=== PATIENT | female | born 1985 | race Caucasian/White ===

== ENCOUNTER 2020-12-18 15:46 | Emergency (ER) | payer OTHER ==
--- NOTE | 2020-12-18 16:44 | XRAY ---
Indication: Strain/sprain injury. Comparison: None 2 view right clavicle obtained. No bony, articular, or soft tissue abnormalities.
--- NOTE | 2020-12-18 16:44 | XRAY ---
Indication: Strain/sprain injury. Comparison: None 3 view right shoulder obtained. No bony, articular, or soft tissue abnormalities.
--- NOTE | 2020-12-18 17:11 | ERPHSYRPT ---
- History of Present Illness Time Seen by Provider: 12/18/20 16:20 Source: patient Exam Limitations: no limitations Patient Subjective Stated Complaint: R shoulder, clavical pain Triage Nursing Assessment: pt to ED c/o R shoulder/clavical pain r/t injury this morning. states she attempted to catch and pull heavy tool box from falling out of truck and R shoulder got pulled in the process. rates 7/10 pain. has kept arm in resting position on abd since injury occured. limited ROM d/t pain, reports "grinding" sound with flexion or abduction of shoulder. Physician History: Patient is a 35-year-old female presents to our ED with complaints of right anterior shoulder and clavicle pain. Patient states that she lifted a heavy toolbox suddenly to prevent it from falling onto her . Injury occurred just prior to arrival. Patient immediately felt pain at her right shoulder. Pain described as an ache that is localized. No radiation. Pain worse with movement and palpation. Pain improved with rest. No other injuries reported. Patient otherwise healthy. Occurred: just prior to arrival Method of Injury: other (Lifting a heavy toolbox.) Quality: constant Severity of Pain-Max: moderate Severity of Pain-Current: mild (Pain rated 7 out of 10.) Extremities Pain Location: shoulder: right Modifying Factors: Improves With: movement Associated Symptoms: none, No chills, No chest discomfort, No chest pain, No dyspnea, No jaw pain, No sweating, No vomiting Allergies/Adverse Reactions: hydromorphone HCl [From Dilaudid] Allergy (Verified 12/18/20 16:15) Swelling Home Medications: Metformin HCl 1000 mg [Glucophage 1000 MG] 1,000 mg PO BID 02/18/15 [History] Metoprolol Succinate 25 mg Xl* [Toprol-Xl 25MG Tablets] 25 mg PO DAILY 10/29/15 [History] Fenofibrate Nanocrystallized [Fenofibrate] 145 mg PO DAILY 12/24/16 [History] Gabapentin 400 mg PO TID 12/24/16 [History] Hx Tetanus, Diphtheria Vaccination/Date Given: Yes Hx Influenza Vaccination/Date Given: Yes Hx Pneumococcal Vaccination/Date Given: No Immunizations Up to Date: Yes Travel Risk - International Travel Have you traveled outside of the country in past 3 weeks: No - Coronavirus Screening Are you exhibiting any of the following symptoms?: No Close contact with a COVID-19 positive Pt in past 14-21 Days: No - Vaccine Status Have you recieved a 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[employer]: [employer] - Vaccination Dates Date of 2cond Vaccination (if applicable): october - Review of Systems Constitutional: No Symptoms, No Fever, No Chills Eyes: No Symptoms Ears, Nose, & Throat: No Symptoms Respiratory: No Symptoms, No Cough, No Dyspnea Cardiac: No Symptoms, No Chest Pain, No Edema, No Syncope Abdominal/Gastrointestinal: No Symptoms, No Abdominal Pain, No Nausea, No Vomiting, No Diarrhea Genitourinary Symptoms: No Symptoms, No Dysuria Musculoskeletal: No Symptoms, No Back Pain, No Neck Pain Skin: No Symptoms, No Rash Neurological: No Symptoms, No Dizziness, No Focal Weakness, No Sensory Changes Psychological: No Symptoms Endocrine: No Symptoms Hematologic/Lymphatic: No Symptoms Immunological/Allergic: No Symptoms All Other Systems: Reviewed and Negative - Past Medical History Pertinent Past Medical History: Yes Neurological History: No Pertinent History ENT History: No Pertinent History Cardiac History: Hypertension Respiratory History: Asthma Endocrine Medical History: Diabetes Type II Musculoskeletal History: No Pertinent History GI Medical History: No Pertinent History History: No Pertinent History Psycho-Social History: Anxiety, Depression Female Reproductive Disorders: Abnormal Uterine Bleeding - Past Surgical History Past Surgical History: Yes Neuro Surgical History: No Pertinent History Cardiac: No Pertinent History Respiratory: No Pertinent History Gastrointestinal: Cholecystectomy Genitourinary: No Pertinent History Musculoskeletal: No Pertinent History Female Surgical History: Hysterectomy Other Surgical History: tonsilectomy, pinky amputated. - Social History Smoking Status: Current every day smoker How long have you smoked: age20 Exposure to second hand smoke: Yes Drug Use: none Patient Lives Alone: No - Female History Hx Now: No - Nursing Vital Signs Nursing Vital Signs: Initial Vital Signs Temperature 97.3 F 12/18/20 16:15 Pulse Rate 99 H 12/18/20 16:15 Respiratory Rate 18 12/18/20 16:15 Blood Pressure 144/102 12/18/20 16:15 O2 Sat by Pulse Oximetry 98 12/18/20 16:15 Pain Scale Pain Intensity 7 - Physical Exam General Appearance: no apparent distress, alert Eyes, Ears, Nose, Throat Exam: normal ENT inspection, TMs normal, pharynx normal, moist mucous membranes Neck Exam: normal inspection, non-tender, supple, full range of motion Cardiovascular/Respiratory Exam: chest non-tender, normal breath sounds, regular rate/rhythm, heart sounds normal, no respiratory distress Abdominal Exam: non-tender, soft, No no organomegaly, No guarding Back Exam: normal inspection, normal range of motion, CVA tenderness, No vertebral tenderness Shoulder Exam: no evidence of injury (Tenderness to palpation at the right anterior shoulder. Palpation reproduces symptoms. Patient's range of motion is guarded due to pain. We will apply a shoulder sling to right shoulder.) Elbow/Forearm Exam: normal inspection, non-tender, no evidence of injury, normal ROM Wrist Exam: normal inspection, non-tender, no evidence of injury, normal ROM Hand Exam: normal inspection, non-tender, no evidence of injury, normal ROM Neuro/Tendon Exam: normal sensation, normal motor functions Mental Status Exam: alert, oriented x 3, cooperative Skin Exam: normal color, warm, dry SpO2 Interpretation: normal SpO2: 98 O2 Delivery: Room Air - Course Nursing assessment & vital signs reviewed: Yes - Radiology Exams Other X-ray Interpretation: Teleradiologist Report (2 view right clavicle no bony articular or soft tissue abnormalities.) Shoulder X-ray Interpretation: Teleradiologist Report (Three-view right shoulder no bony articular or soft tissue abnormalities.) Ordered Tests: Active Orders 24 hr Category Date Time Status CLAVICLE Stat Exams 12/18/20 16:33 Completed SHOULDER Stat Exams 12/18/20 16:33 Completed - Progress Progress: improved Progress Note: 12/18/20 17:20 Patient received Tylenol and a shoulder sling for pain. Pain improved. X-rays negative for fracture dislocation. No indication for further work-up. Patient understands that if pain does not improve in a week's time she will need repeat imaging possible MRI to assess for rotator cuff injury. Plan of care discussed with patient. She agrees to follow-up with primary care doctor within 48 hours for reevaluation. She voices no other complaints or concerns at this time. Portions of this note were created with voice recognition technology. There may be grammatical, spelling, punctuation or sound alike errors Counseled pt/family regarding: diagnosis, need for follow-up, rad results - Departure Departure Disposition: Home Clinical Impression: Shoulder pain, Shoulder strain Condition: Stable Critical Care Time: No Referrals: DANA PICHARDO APPLIQUE SEWER [Primary Care Provider] - Additional Instructions: Discharge/Care Plan CHINA MARSH was seen on 12/18/20 in the Emergency Room. The patient was counseled regarding Diagnosis,Lab results, Imaging studies, need for follow up and when to return to the Emergency Room. Prescriptions given: Discharge Note I have spoken with the patient and/or caregivers. I have explained the patient's condition, diagnosis and treatment plan based on the information available to me at this time. I have answered the patient's and/or caregiver's questions and addressed any concerns. The patient and/or caregivers have as good understanding of the patient's diagnosis, condition and treatment plan as can be expected at this point. The vital signs have been stable. The patient's condition is stable and appropriate for discharge from the emergency department. The patient will pursue further outpatient evaluation with the primary care physician or other designated or consulting physician as outlined in the discharge instructions. The patient and/or caregivers are agreeable to this plan of care and follow-up instructions have been explained in detail. The patient and/or caregivers have received these instruction. The patient/and or caregivers are aware that any significant change in condition or worsening of symptoms should prompt an immediate return to this or the closest emergency department or call 911.
[2020-12-18] MEDS ORDERED: TYLENOL 325 MG PO ONE (17:16)
[2020-12-18] MEDS ORDERED: TYLENOL 325 MG ONE (17:20)
[2020-12-18 17:25] VITALS: BP 125/94; PULSE 100; O2SAT 97
== END 2020-12-18 17:30 | disposition home or self-care (01) ==
LOC: ED 15:46
DX: M25.511 Pain in right shoulder (principal); S46.911A Strain of unspecified muscle, fascia and tendon at shoulder and upper arm level, right arm, initial encounter; X50.0XXA Overexertion from strenuous movement or load, initial encounter
CPT/HCPCS: 73000; 73030; 99283; A9270-GY

== ENCOUNTER 2021-12-19 04:25 | Emergency (ER) | payer OTHER ==
[2021-12-19] MEDS ORDERED: PROTONIX 40 MG IV IV ONE ×2 (04:54→05:01)
[2021-12-19] MEDS ORDERED: Sodium Chloride 0.9% 1000 ML 1,000 ML IV STA (04:54)
[2021-12-19] MEDS ORDERED: Pepcid 20 MG VIAL IV ONE ×2 (04:54→05:01)
[2021-12-19] MEDS ORDERED: Zofran 4 MG/2 ML VIAL IV ONE (04:54)
--- NOTE | 2021-12-19 05:00 | ERPHSYRPT ---
- History of Present Illness Historian: patient Exam Limitations: no limitations Patient Subjective Stated Complaint: pt states "I have this stomach pain for the past few hours." Triage Nursing Assessment: pt ambulated into the er; pt is axo x4; c/o abd pain; pt states 6/10 pain to epigastric region; abd obese, round, soft, tender; pt states that pain radiates to rt flank; hyperactive bowel sounds in all quads; c/o N/V; skin PDW; tachycardic; hypertensive Timing/Duration: today Quality: cramping Abdominal Pain Onset Location: RUQ, LUQ, epigastric Pain Radiation: no radiation Severity of Pain-Max: moderate Severity of Pain-Current: moderate Modifying Factors: Improves With: nothing Associated Symptoms: denies symptoms Previous symptoms: no prior history Hx Tetanus, Diphtheria Vaccination/Date Given: Yes Hx Influenza Vaccination/Date Given: No Hx Pneumococcal Vaccination/Date Given: No Immunizations Up to Date: Yes <RUSLAN SANTANA - Last Filed: 12/19/21 06:54> <TYLER CASTELLANOS - Last Filed: 12/19/21 08:31> - History of Present Illness Time Seen by Provider: 12/19/21 04:57 Physician History: Patient is 36-year-old female with significant past medical history of insulin- dependent diabetes mellitus hypertension obesity started having abdominal pain for 4 hours ago at around 11:00 last night it gradually got worse and at around 2:00 in the morning she has a bowel movement but her pain did not improve so she came to the emergency room. She denies any fever chills nausea vomiting and blood in the stool or urine. Patient is complaining of crampy abdominal pain in epigastric right upper quadrant and left upper quadrant abdominal area. (RUSLAN SANTANA) Allergies/Adverse Reactions: hydromorphone HCl [From Dilaudid] Allergy (Verified 12/18/20 16:15) Swelling Home Medications: Insulin Lispro [Admelog] 1 unit SQ DAILY 12/19/21 [History] Rosuvastatin Calcium 20 mg PO DAILY 12/19/21 [History] Topiramate 25 mg [Topamax 25 MG] 25 mg PO HS 12/19/21 [History] hydrOXYzine HCL [Hydroxyzine HCl] 1 tab PO DAILY 12/19/21 [History] Travel Risk - International Travel Have you traveled outside of the country in past 3 weeks: No - Coronavirus Screening Are you exhibiting any of the following symptoms?: Yes Symptoms: Vomiting/Diarrhea Close contact with a COVID-19 positive Pt in past 14-21 Days: No - Vaccine Status Have you recieved a Covid-19 vaccination: Yes [employer]: [employer] - Vaccination Dates Date of 2cond Vaccination (if applicable): 10/27 <RUSLAN SANTANA - Last Filed: 12/19/21 06:54> - Review of Systems Constitutional: No Fever, No Chills Eyes: No Symptoms Ears, Nose, & Throat: No Symptoms Respiratory: No Cough, No Dyspnea Cardiac: No Chest Pain, No Edema, No Syncope Abdominal/Gastrointestinal: Abdominal Pain, No Nausea, No Vomiting, No Diarrhea Genitourinary Symptoms: No Dysuria Musculoskeletal: No Back Pain, No Neck Pain Skin: No Rash Neurological: No Dizziness, No Focal Weakness, No Sensory Changes Psychological: No Symptoms Endocrine: No Symptoms All Other Systems: Reviewed and Negative <ANGE SANTANASH - Last Filed: 12/19/21 06:54> - Past Medical History Pertinent Past Medical History: Yes Neurological History: No Pertinent History ENT History: No Pertinent History Cardiac History: Hypertension Respiratory History: Asthma Endocrine Medical History: Diabetes Type II Musculoskeletal History: No Pertinent History GI Medical History: No Pertinent History History: No Pertinent History Psycho-Social History: Anxiety, Depression Female Reproductive Disorders: Abnormal Uterine Bleeding - Past Surgical History Past Surgical History: Yes Neuro Surgical History: No Pertinent History Cardiac: No Pertinent History Respiratory: No Pertinent History Gastrointestinal: Cholecystectomy Genitourinary: No Pertinent History Musculoskeletal: No Pertinent History Female Surgical History: Hysterectomy Other Surgical History: tonsilectomy, pinky amputated. - Social History Smoking Status: Current every day smoker How long have you smoked: age20 Exposure to second hand smoke: Yes Drug Use: none Patient Lives Alone: Yes - Female History Hx Now: No <RUSLAN SANTANA - Last Filed: 12/19/21 06:54> - Physical Exam General Appearance: no apparent distress, alert Eye Exam: PERRL/EOMI, eyes nml inspection Ears, Nose, Throat Exam: normal ENT inspection, pharynx normal, moist mucous membranes Neck Exam: normal inspection, non-tender, supple, full range of motion Respiratory Exam: normal breath sounds, lungs clear, No respiratory distress Cardiovascular Exam: regular rate/rhythm, normal heart sounds Gastrointestinal/Abdomen Exam: soft, normal bowel sounds, No tenderness, No mass Back Exam: normal inspection, normal range of motion, No CVA tenderness, No vertebral tenderness Extremity Exam: normal inspection, normal range of motion, pelvis stable Neurologic Exam: alert, oriented x 3, cooperative, normal mood/affect, nml cerebellar function, sensation nml, No motor deficits Skin Exam: normal color, warm, dry SpO2: 100 <MAX - Last Filed: 12/19/21 06:54> - Nursing Vital Signs Nursing Vital Signs: Initial Vital Signs Temperature 96.6 F 12/19/21 04:36 Pulse Rate 109 H 12/19/21 04:36 Respiratory Rate 18 12/19/21 04:36 Blood Pressure 146/95 12/19/21 04:36 O2 Sat by Pulse Oximetry 100 12/19/21 04:36 Pain Scale Pain Intensity 6 - Course Nursing assessment & vital signs reviewed: Yes EKG Interpreted by Me: Sinus Rhythm - CT Exams Abdomen/Pelvis CT Interpretation: Tele-radiologist Report <MAX - Filed: 12/19/21 06:54> Ordered Tests: Active Orders 24 hr Category Date Time Status EKG-ER Only STAT Care 12/19/21 04:54 Active ABDOMEN AND PELVIS W/0 CONTRAS [CT] Stat Exams 12/19/21 04:55 Taken AMYLASE Stat Lab 12/19/21 04:54 Completed CBC W DIFF Stat Lab 12/19/21 05:00 Completed CMP Stat Lab 12/19/21 04:54 Completed CULTURE,URINE Stat Lab 12/19/21 04:59 Received LIPASE Stat Lab 12/19/21 04:54 Completed TROPONIN Q4H Lab 12/19/21 05:00 Completed TROPONIN Q4H Lab 12/19/21 05:00 Received TROPONIN Q4H Lab 12/19/21 13:00 Ordered UA W/RFX CULTURE Stat Lab 12/19/21 04:59 Completed Medication Summary Discontinued Medications Generic Name Dose Route Start Last Admin Trade Name Freq PRN Reason Stop Dose Admin Famotidine 20 mg 12/19/21 04:54 12/19/21 05:02 Famotidine 20 Mg/1 Vial IV 12/19/21 04:55 20 mg STAT ONE Administration Famotidine Confirm 12/19/21 05:01 Famotidine 20 Mg/1 Vial Administered 12/19/21 05:02 Dose 20 mg IV .STK-MED ONE Sodium Chloride 1,000 mls @ 999 mls/hr 12/19/21 04:54 12/19/21 06:04 Sodium Chloride 0.9% 1000 Ml IV 12/19/21 05:54 Infused .Q1H1M STA Infusion Sodium Chloride Confirm 12/19/21 05:01 Sodium Chloride 0.9% 1000 Ml Administered 12/19/21 05:02 Dose 1,000 mls @ ud .ROUTE .STK-MED ONE Ceftriaxone Sodium/Dextrose 1 g in 50 mls @ 100 mls/hr 12/19/21 06:47 12/19/21 07:24 Rocephin 1 Gm-D5w 50 Ml Bag IV 12/19/21 07:16 Infused STAT STA Infusion Ceftriaxone Sodium/Dextrose Confirm 12/19/21 06:50 Rocephin 1 Gm-D5w 50 Ml Bag Administered 12/19/21 06:51 Dose 1 g in 50 mls @ ud IV .STK-MED ONE Ondansetron HCl 4 mg 12/19/21 04:54 12/19/21 05:02 Ondansetron Hcl 4 Mg/2 Ml Vial IV 12/19/21 04:55 4 mg STAT ONE Administration Ondansetron HCl Confirm 12/19/21 05:01 Ondansetron Hcl 4 Mg/2 Ml Vial Administered 12/19/21 05:02 Dose 4 mg .ROUTE .STK-MED ONE Pantoprazole Sodium 40 mg 12/19/21 04:54 12/19/21 05:02 Pantoprazole 40 Mg Vial IV 12/19/21 04:55 40 mg STAT ONE Administration Pantoprazole Sodium Confirm 12/19/21 05:01 Pantoprazole 40 Mg Vial Administered 12/19/21 05:02 Dose 40 mg IV .STK-MED ONE Lab/Rad Data: Laboratory Result Diagrams 12/19/21 05:00 12/19/21 04:54 Laboratory Results 12/19/21 12/19/21 12/19/21 Range/Units 05:00 05:00 04:59 WBC 9.2 (4.0-10.5) x10^3/uL RBC 5.13 (4.1-5.4) x10^6/uL Hgb 14.6 (12.0-16.0) g/dL Hct 44.5 (35-47) % MCV 86.7 (78-100) fL MCH 28.5 (26-32) pg MCHC 32.8 (32-36) g/dL RDW 12.0 (11.5-14.0) % Plt Count 155 (150-450) x10^3/uL MPV 12.3 H (7.5-11.0) fL Gran % 50.9 (36.0-66.0) % Immature Gran % (Auto) 0.5 H (0.00-0.4) % Nucleat RBC Rel Count 0.0 (0.00-0.1) % Eos # (Auto) 0.17 (0-0.5) x10^3/uL Immature Gran # (Auto) 0.05 H (0.00-0.03) x10^3u/L Absolute Lymphs (auto) 3.73 (1.0-4.6) x10^3/uL Absolute Monos (auto) 0.50 (0.0-1.3) x10^3/uL Absolute Nucleated RBC 0.00 (0.00-0.01) x10^3u/L Lymphocytes % 40.7 (24.0-44.0) % Monocytes % 5.5 (0.0-12.0) % Eosinophils % 1.9 (0.00-5.0) % Basophils % 0.5 (0.0-0.4) % Absolute Granulocytes 4.67 (1.4-6.9) x10^3/uL Basophils # 0.05 (0-0.4) x10^3/uL Sodium (137-145) mmol/L Potassium (3.5-5.1) mmol/L Chloride (98-107) mmol/L Carbon Dioxide (22-30) mmol/L Anion Gap (5-15) MEQ/L BUN (7-17) mg/dL Creatinine (0.52-1.04) mg/dL Estimated GFR ML/MIN Glucose (74-106) mg/dL Calcium (8.4-10.2) mg/dL Total Bilirubin (0.2-1.3) mg/dL AST (14-36) U/L ALT (0-35) U/L Alkaline Phosphatase (38-126) U/L Troponin I < 0.012 (0.000-0.034) ng/mL Serum Total Protein (6.3-8.2) g/dL Albumin (3.5-5.0) g/dL Amylase (30-110) U/L Lipase (23-300) U/L Urinalys Dipstick Clnc MAIN LAB Urine Color YELLOW (YELLOW) Urine Appearance CLEAR (CLEAR) Urine pH 5.5 (5-6) Ur Specific Free Soil >=1.030 (1.005-1.025) POC Urine Protein Conf NEGATIVE (Negative) Urine Ketones NEGATIVE (NEGATIVE) Urine Nitrite NEGATIVE (NEGATIVE) Urine Bilirubin NEGATIVE (NEGATIVE) Urine Urobilinogen 0.2 (0-1) mg/dL Urine Leukocytes NEGATIVE (NEGATIVE) Urine WBC (Auto) 11-15 (0-5) /HPF Urine RBC (Auto) 3-5 (0-2) /HPF U Hyaline Cast (Auto) 0-2 (0-2) /LPF U Epithel Cells (Auto) RARE (FEW) /HPF Urine Bacteria (Auto) MODERATE (NEGATIVE) /HPF Urine RBC NEGATIVE (0-5) Jv/ul Unidentified Crystals 25-50 (NEGATIVE) /HPF Urine Mucus (Auto) SLIGHT (NEGATIVE) /HPF Ur Culture Indicated? YES Urine Glucose 100 (NEGATIVE) mg/dL 12/19/21 Range/Units 04:54 WBC (4.0-10.5) x10^3/uL RBC (4.1-5.4) x10^6/uL Hgb (12.0-16.0) g/dL Hct (35-47) % MCV (78-100) fL MCH (26-32) pg MCHC (32-36) g/dL RDW (11.5-14.0) % Plt Count (150-450) x10^3/uL MPV (7.5-11.0) fL Gran % (36.0-66.0) % Immature Gran % (Auto) (0.00-0.4) % Nucleat RBC Rel Count (0.00-0.1) % Eos # (Auto) (0-0.5) x10^3/uL Immature Gran # (Auto) (0.00-0.03) x10^3u/L Absolute Lymphs (auto) (1.0-4.6) x10^3/uL Absolute Monos (auto) (0.0-1.3) x10^3/uL Absolute Nucleated RBC (0.00-0.01) x10^3u/L Lymphocytes % (24.0-44.0) % Monocytes % (0.0-12.0) % Eosinophils % (0.00-5.0) % Basophils % (0.0-0.4) % Absolute Granulocytes (1.4-6.9) x10^3/uL Basophils # (0-0.4) x10^3/uL Sodium 136 L (137-145) mmol/L Potassium 4.5 (3.5-5.1) mmol/L Chloride 101 (98-107) mmol/L Carbon Dioxide 24 (22-30) mmol/L Anion Gap 16.2 H (5-15) MEQ/L BUN 13 (7-17) mg/dL Creatinine 0.56 (0.52-1.04) mg/dL Estimated GFR > 60.0 ML/MIN Glucose 303 H (74-106) mg/dL Calcium 9.8 (8.4-10.2) mg/dL Total Bilirubin 0.50 (0.2-1.3) mg/dL AST 41 H (14-36) U/L ALT 69 H (0-35) U/L Alkaline Phosphatase 107 (38-126) U/L Troponin I (0.000-0.034) ng/mL Serum Total Protein 7.7 (6.3-8.2) g/dL Albumin 4.4 (3.5-5.0) g/dL Amylase 59 (30-110) U/L Lipase 128 (23-300) U/L Urinalys Dipstick Clnc Urine Color (YELLOW) Urine Appearance (CLEAR) Urine pH (5-6) Ur Specific Free Soil (1.005-1.025) POC Urine Protein Conf (Negative) Urine Ketones (NEGATIVE) Urine Nitrite (NEGATIVE) Urine Bilirubin (NEGATIVE) Urine Urobilinogen (0-1) mg/dL Urine Leukocytes (NEGATIVE) Urine WBC (Auto) (0-5) /HPF Urine RBC (Auto) (0-2) /HPF U Hyaline Cast (Auto) (0-2) /LPF U Epithel Cells (Auto) (FEW) /HPF Urine Bacteria (Auto) (NEGATIVE) /HPF Urine RBC (0-5) Jv/ul Unidentified Crystals (NEGATIVE) /HPF Urine Mucus (Auto) (NEGATIVE) /HPF Ur Culture Indicated? Urine Glucose (NEGATIVE) mg/dL - Progress Progress: improved Counseled pt/family regarding: lab results, diagnosis, need for follow-up, rad results <TYLER CASTELLANOS - Last Filed: 12/19/21 08:31> - Progress Progress Note: 12/19/21 08:28 36 years old is checked out to me at shift change from with pending CT abdomen pelvis. Patient presented with upper abdominal pain with nausea starting last night. On my evaluation patient is feeling much better. She does not have any peritoneal signs. She has a history of cholecystectomy. Normal white count, grossly unremarkable chemistries except for some elevation in transaminases. Normal bilirubin. CT abdomen pelvis is negative for any acute abdominal pelvic findings. She does have UTI and received a dose of Rocephin in here and will continue with Keflex to go home. I believe she has some element of gastritis/GERD and will give her a prescription of Protonix. Discussed signs symptoms of worsening needing return to ER which she seems understanding. Stable for discharge. (TYLER CASTELLANOS) <RUSLAN SANTANA - Last Filed: 12/19/21 06:54> - Departure Departure Disposition: Home Critical Care Time: No <TYLER CASTELLANOS - Last Filed: 12/19/21 08:31> - Departure Clinical Impression: UTI (urinary tract infection) due to Enterococcus, Upper abdominal pain Condition: Stable Referrals: DANA PICHARDO SLACKLINE OPERATOR [Primary Care Provider] - Follow up/PCP as directed (1-2 days for reevaluation) Instructions: Severe Abdominal Pain, Adult (DC) Additional Instructions: Do not take ibuprofen'/Aleve or any other NSAIDs. Take Tylenol as needed for pain. Follow-up with primary care for reevaluation. Return to ER for worsening abdominal pain, intractable nausea vomiting etc. Prescriptions: Cephalexin Mh 500 mg [Keflex 500 mg] 500 mg PO TID #21 cap PANTOPRAZOLE 40 mg Tablet [Protonix 40MG Tablet] 40 mg PO QAM #30 tab
[2021-12-19] MEDS ORDERED: Sodium Chloride 0.9% 1000 ML 1,000 ML ONE (05:01)
[2021-12-19] MEDS ORDERED: Zofran 4 MG/2 ML VIAL ONE (05:01)
[2021-12-19 05:37] LABS: Absolute Neutrophil Ct (ANC) 4.67 x10^3/uL (1.4-6.9); Basophil (Absolute #) 0.05 x10^3/uL (0-0.4); Eosinophil % 1.9 % (0.00-5.0); Eosinophil (Absolute #) 0.17 x10^3/uL (0-0.5); Hematocrit 44.5 % (35-47); Hemoglobin 14.6 g/dL (12.0-16.0); Lymphocyte (Absolute #) 3.73 x10^3/uL (1.0-4.6); Lymphocytes % 40.7 % (24.0-44.0); Mean Cell Volume 86.7 fL (78-100); Mean Corpuscular Hemoglobin 28.5 pg (26-32); Mean Corpuscular Hgb Concent. 32.8 g/dL (32-36); Mean Platelet Volume 12.3 fL (7.5-11.0); Monocytes % 5.5 % (0.0-12.0); Neutrophil % 50.9 % (36.0-66.0); Platelet Count 155 x10^3/uL (150-450); Red Blood Count 5.13 x10^6/uL (4.1-5.4); White Blood Count 9.2 x10^3/uL (4.0-10.5)
[2021-12-19 05:47] LABS: ALBUMIN 4.4 g/dL (3.5-5.0); ALKALINE PHOSPHATASE 107 U/L (38-126); AMYLASE 59 U/L (30-110); ANION GAP 16.2 MEQ/L (5-15); BLOOD UREA NITROGEN 13 mg/dL (7-17); CHLORIDE 101 mmol/L (98-107); Calcium 9.8 mg/dL (8.4-10.2); Carbon Dioxide 24 mmol/L (22-30); Creatinine 1 0.56 mg/dL (0.52-1.04); EST GLOMERULAR FILTRATION RATE > 60.0 ML/MIN; Glucose 303 mg/dL (74-106); LIPASE 128 U/L (23-300); Potassium 4.5 mmol/L (3.5-5.1); SGOT/AST 41 U/L (14-36); SGPT/ALT 69 U/L (0-35); SODIUM 136 mmol/L (137-145); Total Protein 7.7 g/dL (6.3-8.2)
[2021-12-19 05:51] LABS: Appearance CLEAR (CLEAR); Bilirubin NEGATIVE (NEGATIVE); Glucose 100 mg/dL (NEGATIVE); Ketones NEGATIVE (NEGATIVE)
[2021-12-19 05:52] LABS: Dipstick done @ ? MAIN LAB; Nitrite NEGATIVE (NEGATIVE); Ph 5.5 (5-6); Protein,Urine Dip NEGATIVE (Negative); RBC NEGATIVE Ery/ul (0-5); Specific Gravity >=1.030 (1.005-1.025); Urobilinogen 0.2 mg/dL (0-1)
[2021-12-19 05:54] LABS: Bacteria MODERATE /HPF (NEGATIVE); Crystals Unidentified 25-50 /HPF (NEGATIVE); Epithelial Cells RARE /HPF (FEW); Hyaline Casts 0-2 /LPF (0-2); Mucus SLIGHT /HPF (NEGATIVE); Urine Cultured Indicated? YES
[2021-12-19] MEDS ORDERED: ROCEPHIN 1 Gm-D5w 50 ml Bag** 1 G/50 ML IVPB IV STA (06:47)
[2021-12-19] MEDS ORDERED: ROCEPHIN 1 Gm-D5w 50 ml Bag** 1 G/50 ML IVPB IV ONE (06:50)
--- NOTE | 2021-12-19 08:56 | XRAY ---
Indication: Epigastric/right upper quadrant pain. Nausea. Multiple contiguous axial images obtained through the abdomen and pelvis without contrast. Comparison: November 05, 2014 Lung bases demonstrates stable right middle and right lower lobe noncalcified micronodules favored to be benign given stability over the years. No infiltrate or effusion. Heart not enlarged. Noncontrasted stomach and bowel loops appear nonobstructed with normal appendix. Again 21.3 cm fatty hepatomegaly, cholecystectomy, and hysterectomy. Spleen is enlarged measuring 13.1 cm. No free fluid/air. Remaining liver, pancreas, spleen, adrenal glands, kidneys, ureters, bladder, and aorta are unremarkable for noncontrast exam. Osseous structures intact again with incidental L4 limbus vertebrae. No ventral or inguinal hernias. Impression: 1. Fatty hepatomegaly and splenomegaly. 2. Remaining CT abdomen/pelvis without contrast exam is negative. Comment: Preliminary interpretation made by [facility]. No critical discrepancy.
[2021-12-19 08:59] VITALS: BP 130/93; PULSE 89; O2SAT 95
== END 2021-12-19 09:04 | disposition home or self-care (01) ==
LOC: ED 04:25
DX: N39.0 Urinary tract infection, site not specified (principal); B95.2 Enterococcus as the cause of diseases classified elsewhere; R10.11 Right upper quadrant pain; R10.12 Left upper quadrant pain; R10.13 Epigastric pain; Z79.899 Other long term (current) drug therapy; E11.9 Type 2 diabetes mellitus without complications; Z79.4 Long term (current) use of insulin; I10 Essential (primary) hypertension; R19.7 Diarrhea, unspecified
CPT/HCPCS: 36415; 74176; 80053; 81015; 82150; 83690; 84484; 85025; 87086; 93005; 96360; 96365; 96374; 96375; 99284; J0696; J2405

== ENCOUNTER 2022-01-31 20:23 | Emergency (ER) | payer OTHER ==
[2022-01-31] MEDS ORDERED: Zofran 4 MG/2 ML VIAL IV ONE (20:43)
[2022-01-31] MEDS ORDERED: Sodium Chloride 0.9% 1000 ML 1,000 ML IV SCH (20:45)
--- NOTE | 2022-01-31 20:51 | ERPHSYRPT ---
- History of Present Illness Time Seen by Provider: 01/31/22 20:46 Source: patient Exam Limitations: no limitations Patient Subjective Stated Complaint: pt states she had a hepatic biopsy accessed from the right jugular on 01/21/22. states that for the first 8 days it wa just a bit tender, but in the last two days pt has had a signicant amount of pain (5/10) in right side of neck and new swelling in the last two dats. Triage Nursing Assessment: pt is alert and oriented, able to answer questions, ambulated to room without assist. is now resting in bed rubbing right side of neck and stating it is very tender. swelling noted to right side of neck, around procedural area. Physician History: pt had right jugular cath to liver with biopsy 10 days ago and has had increasing pain and swelling at the site the past 2 days. Some N no V. No abdominal pain. Nontender abd without peritoneal signs. Chest is clear Ht reg without murmur. Timing/Duration: day(s) Severity: moderate Modifying Factors: Improves With: movement Associated Symptoms: nausea, shortness of breath (pain in area with deep breath - not dyspneic at rest. ) Allergies/Adverse Reactions: hydromorphone HCl [From Dilaudid] Allergy (Verified 12/18/20 16:15) Swelling Home Medications: Insulin Lispro [Admelog] 1 unit SQ DAILY 12/19/21 [History] Rosuvastatin Calcium 20 mg PO DAILY 12/19/21 [History] Topiramate 25 mg [Topamax 25 MG] 25 mg PO HS 12/19/21 [History] hydrOXYzine HCL [Hydroxyzine HCl] 1 tab PO DAILY 12/19/21 [History] Hx Tetanus, Diphtheria Vaccination/Date Given: Yes Hx Influenza Vaccination/Date Given: No Hx Pneumococcal Vaccination/Date Given: No Travel Risk - International Travel Have you traveled outside of the country in past 3 weeks: No - Coronavirus Screening Are you exhibiting any of the following symptoms?: No Close contact with a COVID-19 positive Pt in past 14-21 Days: No - Vaccine Status Have you 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: [employer] - Vaccination Dates Date of 2cond Vaccination (if applicable): unknown - Review of Systems Constitutional: No Fever, No Chills Eyes: No Symptoms Ears, Nose, & Throat: Other (right neck pain soft tissue at jugular) Respiratory: No Cough, No Dyspnea Cardiac: No Chest Pain, No Edema, No Syncope Abdominal/Gastrointestinal: No Abdominal Pain, No Nausea, No Vomiting, No Diarrhea Genitourinary Symptoms: No Dysuria Musculoskeletal: No Back Pain, No Neck Pain Skin: No Rash Neurological: No Dizziness, No Focal Weakness, No Sensory Changes Psychological: No Symptoms Endocrine: No Symptoms Hematologic/Lymphatic: No Symptoms Immunological/Allergic: No Symptoms All Other Systems: Reviewed and Negative - Past Medical History Pertinent Past Medical History: Yes Neurological History: No Pertinent History ENT History: No Pertinent History Cardiac History: Hypertension Respiratory History: Asthma Endocrine Medical History: Diabetes Type II Musculoskeletal History: No Pertinent History GI Medical History: No Pertinent History History: No Pertinent History Psycho-Social History: Anxiety, Depression Female Reproductive Disorders: Abnormal Uterine Bleeding - Past Surgical History Past Surgical History: Yes Neuro Surgical History: No Pertinent History Cardiac: No Pertinent History Respiratory: No Pertinent History Gastrointestinal: Cholecystectomy Genitourinary: No Pertinent History Musculoskeletal: No Pertinent History Female Surgical History: Hysterectomy Other Surgical History: tonsilectomy, pinky amputated. - Social History Smoking Status: Current every day smoker How long have you smoked: age20 Exposure to second hand smoke: Yes Drug Use: none Patient Lives Alone: Yes - Female History Hx Last Menstrual Period: 2009, hysterectomy Hx Now: No - Nursing Vital Signs Nursing Vital Signs: Initial Vital Signs Temperature 97.8 F 01/31/22 20:31 Pulse Rate 104 H 01/31/22 20:31 Respiratory Rate 18 01/31/22 20:31 Blood Pressure 164/106 01/31/22 20:31 O2 Sat by Pulse Oximetry 97 01/31/22 20:31 Pain Scale Pain Intensity 5 - Physical Exam General Appearance: no apparent distress, alert Eye Exam: PERRL/EOMI, eyes nml inspection Ears, Nose, Throat Exam: normal ENT inspection, TMs normal, pharynx normal, moist mucous membranes Neck Exam: normal inspection, supple, full range of motion, other (tender right neck) Respiratory Exam: normal breath sounds, lungs clear, No respiratory distress Cardiovascular Exam: regular rate/rhythm, normal heart sounds, normal peripheral pulses Gastrointestinal/Abdomen Exam: soft, normal bowel sounds, No tenderness, No mass Pelvic Exam: deferred Rectal Exam: deferred Back Exam: normal inspection, normal range of motion, No CVA tenderness, No vertebral tenderness Extremity Exam: normal inspection, normal range of motion, pelvis stable Neurologic Exam: alert, oriented x 3, cooperative, normal mood/affect, nml cerebellar function, nml station & gait, sensation nml, No motor deficits Skin Exam: normal color, warm, dry, No rash Lymphatic Exam: No adenopathy SpO2 Interpretation: normal SpO2: 97 O2 Delivery: Room Air - Course Nursing assessment & vital signs reviewed: Yes - CT Exams Soft Tissue Neck CT Interpretation: Tele-radiologist Report, Other (no abscess or vascular abnormality seen on rad reading) Chest CT Interpretation: Tele-radiologist Report, No PE, Other (no infiltrates or vascular abnormality reported on rad reading, stable right nodules per rad. ) - Radiology Ultrasound Exam Venous Upper Extremity Ultrasound: tele radiology report, Other (no DVT) Ordered Tests: Active Orders 24 hr Category Date Time Status IV Insertion STAT Care 01/31/22 20:43 Active CHEST WITH CONTRAST [CT] Stat Exams 01/31/22 21:40 Taken CHEST WITHOUT CONTRAST [CT] Stat Exams 01/31/22 20:41 Completed NECK WO CONTRAST [CT] Stat Exams 01/31/22 20:43 Completed VENOUS UNILAT/LIMITED EXTREMIT [US] Stat Exams 02/01/22 00:08 Taken CBC W DIFF Stat Lab 01/31/22 20:57 Completed CMP Stat Lab 01/31/22 20:57 Completed D-DIMER QUANTITATIVE Stat Lab 01/31/22 20:57 Completed Lactic Acid Stat Lab 01/31/22 21:00 Completed Lactic Acid Stat Lab 01/31/22 23:14 Completed Medication Summary Generic Name Dose Route Start Last Admin Trade Name Freq PRN Reason Stop Dose Admin Sodium Chloride 1,000 mls @ 100 mls/hr 01/31/22 20:45 01/31/22 21:00 Sodium Chloride 0.9% 1000 Ml IV 03/02/22 20:44 100 mls/hr .Q10H [place] Administration Discontinued Medications Generic Name Dose Route Start Last Admin Trade Name Freq PRN Reason Stop Dose Admin Sodium Chloride 1,000 mls @ 999 mls/hr 01/31/22 21:41 02/01/22 00:11 Sodium Chloride 0.9% 1000 Ml IV 01/31/22 22:41 999 mls/hr .Q1H1M STA Administration Morphine Sulfate Confirm 01/31/22 20:57 Morphine Sulfate 4 Mg/Ml Injection Administered 01/31/22 20:58 Dose 4 mg .ROUTE .STK-MED ONE Morphine Sulfate 4 mg 01/31/22 21:04 01/31/22 21:08 Morphine Sulfate 4 Mg/Ml Injection IV 01/31/22 21:05 4 mg STAT ONE Administration Morphine Sulfate 4 mg 01/31/22 21:47 02/01/22 00:11 Morphine Sulfate 4 Mg/Ml Injection IV 01/31/22 21:48 4 mg STAT ONE Administration Morphine Sulfate Confirm 02/01/22 00:10 Morphine Sulfate 4 Mg/Ml Injection Administered 02/01/22 00:11 Dose 4 mg .ROUTE .STK-MED ONE Ondansetron HCl 4 mg 01/31/22 20:43 01/31/22 21:00 Ondansetron Hcl 4 Mg/2 Ml Vial IV 01/31/22 20:44 4 mg STAT ONE Administration Ondansetron HCl Confirm 01/31/22 20:57 Ondansetron Hcl 4 Mg/2 Ml Vial Administered 01/31/22 20:58 Dose 4 mg .ROUTE .STK-MED ONE Lab/Rad Data: Laboratory Result Diagrams 01/31/22 20:57 01/31/22 20:57 Laboratory Results 01/31/22 01/31/22 01/31/22 Range/Units 23:14 21:00 20:57 WBC (4.0-10.5) x10^3/uL RBC (4.1-5.4) x10^6/uL Hgb (12.0-16.0) g/dL Hct (35-47) % MCV (78-100) fL MCH (26-32) pg MCHC (32-36) g/dL RDW (11.5-14.0) % Plt Count (150-450) x10^3/uL MPV (7.5-11.0) fL Gran % (36.0-66.0) % Immature Gran % (Auto) (0.00-0.4) % Nucleat RBC Rel Count (0.00-0.1) % Eos # (Auto) (0-0.5) x10^3/uL Immature Gran # (Auto) (0.00-0.03) x10^3u/L Absolute Lymphs (auto) (1.0-4.6) x10^3/uL Absolute Monos (auto) (0.0-1.3) x10^3/uL Absolute Nucleated RBC (0.00-0.01) x10^3u/L Lymphocytes % (24.0-44.0) % Monocytes % (0.0-12.0) % Eosinophils % (0.00-5.0) % Basophils % (0.0-0.4) % Absolute Granulocytes (1.4-6.9) x10^3/uL Basophils # (0-0.4) x10^3/uL D-Dimer 2.37 H* (0.0-0.50) mg/L Sodium (137-145) mmol/L Potassium (3.5-5.1) mmol/L Chloride (98-107) mmol/L Carbon Dioxide (22-30) mmol/L Anion Gap (5-15) MEQ/L BUN (7-17) mg/dL Creatinine (0.52-1.04) mg/dL Estimated GFR ML/MIN Glucose (74-106) mg/dL Lactic Acid 1.1 2.2 H (0.4-2.0) Calcium (8.4-10.2) mg/dL Total Bilirubin (0.2-1.3) mg/dL AST (14-36) U/L ALT (0-35) U/L Alkaline Phosphatase (38-126) U/L Serum Total Protein (6.3-8.2) g/dL Albumin (3.5-5.0) g/dL 01/31/22 01/31/22 Range/Units 20:57 20:57 WBC 12.4 H (4.0-10.5) x10^3/uL RBC 5.20 (4.1-5.4) x10^6/uL Hgb 14.9 (12.0-16.0) g/dL Hct 45.4 (35-47) % MCV 87.3 (78-100) fL MCH 28.7 (26-32) pg MCHC 32.8 (32-36) g/dL RDW 11.9 (11.5-14.0) % Plt Count 196 (150-450) x10^3/uL MPV 12.5 H (7.5-11.0) fL Gran % 48.3 (36.0-66.0) % Immature Gran % (Auto) 0.4 (0.00-0.4) % Nucleat RBC Rel Count 0.0 (0.00-0.1) % Eos # (Auto) 0.30 (0-0.5) x10^3/uL Immature Gran # (Auto) 0.05 H (0.00-0.03) x10^3u/L Absolute Lymphs (auto) 5.37 H (1.0-4.6) x10^3/uL Absolute Monos (auto) 0.64 (0.0-1.3) x10^3/uL Absolute Nucleated RBC 0.00 (0.00-0.01) x10^3u/L Lymphocytes % 43.2 (24.0-44.0) % Monocytes % 5.1 (0.0-12.0) % Eosinophils % 2.4 (0.00-5.0) % Basophils % 0.6 (0.0-0.4) % Absolute Granulocytes 5.99 (1.4-6.9) x10^3/uL Basophils # 0.08 (0-0.4) x10^3/uL D-Dimer (0.0-0.50) mg/L Sodium 135 L (137-145) mmol/L Potassium 4.5 (3.5-5.1) mmol/L Chloride 105 (98-107) mmol/L Carbon Dioxide 19 L (22-30) mmol/L Anion Gap 15.6 H (5-15) MEQ/L BUN 12 (7-17) mg/dL Creatinine 0.67 (0.52-1.04) mg/dL Estimated GFR > 60.0 ML/MIN Glucose 311 H (74-106) mg/dL Lactic Acid (0.4-2.0) Calcium 9.4 (8.4-10.2) mg/dL Total Bilirubin 0.60 (0.2-1.3) mg/dL AST 38 H (14-36) U/L ALT 68 H (0-35) U/L Alkaline Phosphatase 109 (38-126) U/L Serum Total Protein 8.5 H (6.3-8.2) g/dL Albumin 4.7 (3.5-5.0) g/dL - Progress Progress: improved, re-examined Progress Note: 01/31/22 21:44 elevated d dimer - discussed risk/benefit with pt and she wishes to proceed with PE protocol. 02/01/22 02:00 pt is feeling better and would like DC to outpt f/u now. We will also start on keflex for possible SQ cellulitis vs inflammation. Pt advised that a more serious infection could be starting but prefers DC with outpt to inpt Tx , or at least outpt trial first. She is advised to return if not improving. and to see her Dr. Sparrow for recheck. Counseled pt/family regarding: lab results, diagnosis, need for follow-up, rad results - Departure Departure Disposition: Home Clinical Impression: post op pain and inflammation Condition: Good Critical Care Time: No Referrals: DANA PICHARDO, SKIN FITTER [Primary Care Provider] - Follow up/PCP as directed Instructions: Cellulitis (Skin Infection), Adult ED Additional Instructions: we are providing instructions and antibiotics for possible cellulitis as a precaution , although this is not yet diagnosed. THere also may be other conditions still developing , even with the normal CT and ultrasound studies, so followup is a good idea. Followup with your Dr. Sparrow and return meantime if not improving or if any other concerns. Also follow up for your Diabetes with your and continue to adjust insulin for control. Prescriptions: Cephalexin Mh 500 mg [Keflex 500 mg] 500 mg PO TID 7 Days #21 cap
[2022-01-31] MEDS ORDERED: Zofran 4 MG/2 ML VIAL ONE (20:57)
[2022-01-31] MEDS ORDERED: Sodium Chloride 0.9% 1000 ML 1,000 ML ONE (20:57)
[2022-01-31] MEDS ORDERED: MORPHINE SULFATE 4 MG INJ ONE (20:57)
[2022-01-31 20:59] LABS: Absolute Neutrophil Ct (ANC) 5.99 x10^3/uL (1.4-6.9); Basophil (Absolute #) 0.08 x10^3/uL (0-0.4); Eosinophil % 2.4 % (0.00-5.0); Hematocrit 45.4 % (35-47); Hemoglobin 14.9 g/dL (12.0-16.0); Lymphocyte (Absolute #) 5.37 x10^3/uL (1.0-4.6); Lymphocytes % 43.2 % (24.0-44.0); Mean Cell Volume 87.3 fL (78-100); Mean Corpuscular Hemoglobin 28.7 pg (26-32); Mean Corpuscular Hgb Concent. 32.8 g/dL (32-36); Mean Platelet Volume 12.5 fL (7.5-11.0); Monocyte (Absolute #) 0.64 x10^3/uL (0.0-1.3); Monocytes % 5.1 % (0.0-12.0); Neutrophil % 48.3 % (36.0-66.0); Platelet Count 196 x10^3/uL (150-450); Red Cell Distribution Width 11.9 % (11.5-14.0); White Blood Count 12.4 x10^3/uL (4.0-10.5)
[2022-01-31] MEDS ORDERED: MORPHINE SULFATE 4 MG INJ IV ONE ×2 (21:04→21:47)
[2022-01-31 21:13] LABS: ALBUMIN 4.7 g/dL (3.5-5.0); ALKALINE PHOSPHATASE 109 U/L (38-126); ANION GAP 15.6 MEQ/L (5-15); BLOOD UREA NITROGEN 12 mg/dL (7-17); CHLORIDE 105 mmol/L (98-107); Calcium 9.4 mg/dL (8.4-10.2); Carbon Dioxide 19 mmol/L (22-30); Creatinine 1 0.67 mg/dL (0.52-1.04); EST GLOMERULAR FILTRATION RATE > 60.0 ML/MIN; Glucose 311 mg/dL (74-106); Potassium 4.5 mmol/L (3.5-5.1); SGOT/AST 38 U/L (14-36); SGPT/ALT 68 U/L (0-35); SODIUM 135 mmol/L (137-145); Total Protein 8.5 g/dL (6.3-8.2)
[2022-01-31] MEDS ORDERED: Sodium Chloride 0.9% 1000 ML 1,000 ML IV STA (21:41)
--- NOTE | 2022-01-31 22:00 | XRAY ---
Indication: Right neck pain and swelling following transjugular liver biopsy 10 days ago. Multiple contiguous axial images obtained through the neck without contrast. Cutaneous BB placed over region of interest. Comparison: January 17, 2015 Right neck cutaneous BB is seen approximately C6 level where there is very tiny cutaneous/subcutaneous induration favoring scar from recent procedure. No underlying solid/cystic soft tissue mass or abnormal fluid collection. Major arteries and veins are normal in course and caliber. A few centimeters/subcentimeter cervical and submandibular lymph nodes bilaterally. No pathologic lymphadenopathy. Thyroid gland homogeneous. Supra and infraglottic airway widely patent. Visualized cervical thoracic spine intact. No suspicious bony lesions. CT chest reported separately. Impression: Continued negative CT neck without contrast exam.
--- NOTE | 2022-01-31 22:03 | XRAY ---
Indication: Right neck pain and swelling following transjugular liver biopsy 10 days ago. Multiple contiguous axial images obtained through the chest without contrast. Comparison: January 17, 2015 Lungs demonstrate stable 8 mm right middle and 4 mm right lower noncalcified nodules favored to be benign given stability over the years. Remaining lungs clear. Heart not enlarged. Aorta is normal in course and caliber. No pathologic mediastinal lymphadenopathy. Bony thorax intact. Limited upper abdomen again demonstrates fatty liver. Impression: Continued negative CT chest without contrast exam. Again incidental 2 right lung benign noncalcified micronodules and fatty liver.
[2022-02-01] MEDS ORDERED: MORPHINE SULFATE 4 MG INJ ONE ×2 (00:10→02:12)
[2022-02-01] MEDS ORDERED: Sodium Chloride 0.9% 1000 ML 1,000 ML ONE (00:10)
[2022-02-01 01:09] VITALS: PULSE 78
[2022-02-01] MEDS ORDERED: KEFLEX 500 MG PO ONE (01:58)
[2022-02-01] MEDS ORDERED: MORPHINE SULFATE 4 MG INJ IV ONE (01:59)
[2022-02-01] MEDS ORDERED: KEFLEX 500 MG ONE (02:12)
[2022-02-01 02:25] VITALS: BP 125/89; O2SAT 98
--- NOTE | 2022-02-01 07:54 | XRAY ---
Indication: Elevated d-dimer. Right neck pain/swelling following transjugular liver biopsy 10 days ago. Multiple contiguous axial images obtained through the chest using 100 cc Isovue-370 contrast and PE protocol. Comparison: CT chest without contrast performed earlier in the day. Suboptimal opacification of the pulmonary arteries limits evaluation for pulmonary embolus. No obvious pulmonary embolus. Heart not enlarged. Aorta is normal in course and caliber without aneurysm/dissection. No pathologic mediastinal/hilar lymphadenopathy. Lungs remain clear with stable benign right middle and right lower lobe noncalcified micronodules. Bony thorax intact. Limited upper abdomen demonstrates fatty liver. Impression: 1. Pulmonary embolus evaluation limited by suboptimal contrast opacification. No obvious pulmonary embolus. 2. Stable 2 benign right lung noncalcified micronodules and fatty liver. Comment: Preliminary interpretation made by [facility]. No critical discrepancy.
--- NOTE | 2022-02-01 07:56 | XRAY ---
Indication: Right neck pain/swelling following transjugular liver biopsy 10 days ago. Two-dimensional sonogram and color Doppler imaging of the major venous vessels of the right upper extremity performed. Comparison: None Visualized right jugular, subclavian, cephalic, brachial, axillary, basilic, radial, and ulnar veins are negative for thrombosis. Veins demonstrate normal compressibility and normal venous waveforms. Targeted ultrasound over region of interest is negative for focal solid cyst/cystic mass or abnormal fluid collection. Impression: Right upper extremity negative for venous thrombosis. Comment: Preliminary report was given.
== END 2022-02-01 02:26 | disposition home or self-care (01) ==
LOC: ED 20:23
DX: G89.18 Other acute postprocedural pain (principal); R11.0 Nausea; I10 Essential (primary) hypertension; E11.9 Type 2 diabetes mellitus without complications; Z72.0 Tobacco use; Z79.4 Long term (current) use of insulin; Z79.899 Other long term (current) drug therapy
CPT/HCPCS: 36000; 36415; 70490; 71250; 71260; 80053; 83605; 85025; 85379; 93971; 96374; 96375; 96376; 99284; J2270; J2405; A9270-GY

== ENCOUNTER 2022-02-02 15:15 | Emergency (ER) | payer OTHER ==
[2022-02-02] MEDS ORDERED: XYLOCAINE 1% HCL 20 ML MDV IJ ONE (15:16)
--- NOTE | 2022-02-02 18:28 | ERPHSYRPT ---
- History of Present Illness Time Seen by Provider: 02/02/22 18:00 Source: patient Exam Limitations: no limitations Patient Subjective Stated Complaint: pt here for wound infection, she has a liver bx done last week and insertion site has swelling Triage Nursing Assessment: pt alert, resp easy, face mask in place, skin w/d/p, has redness and swelling with raised area to incison site Physician History: This is a 36-year-old diabetic overweight female who underwent a right transjugular liver biopsy 10 days ago. Patient was seen in our emergency department because of swelling and tenderness in the entrance site on the right neck. A CT scan of the neck was performed which showed no abnormal solid/cystic soft tissue mass or fluid collection. Patient was given an injection of Rocephin intramuscularly at that visit. Patient was given a prescription for Keflex which she did not fill. She is back today because she sees some mild redness and pus at the skin entrance site. Timing/Duration: day(s) Quality: painful Severity: mild Location: other (Right neck incision site) Associated Symptoms: swelling/mass/lumps Allergies/Adverse Reactions: hydromorphone HCl [From Dilaudid] Allergy (Verified 12/18/20 16:15) Swelling Home Medications: Insulin Lispro [Admelog] 1 unit SQ DAILY 12/19/21 [History] Rosuvastatin Calcium 20 mg PO DAILY 12/19/21 [History] Topiramate 25 mg [Topamax 25 MG] 25 mg PO HS 12/19/21 [History] hydrOXYzine HCL [Hydroxyzine HCl] 1 tab PO DAILY 12/19/21 [History] Hx Tetanus, Diphtheria Vaccination/Date Given: Yes Hx Influenza Vaccination/Date Given: No Hx Pneumococcal Vaccination/Date Given: No Immunizations Up to Date: Yes Travel Risk - International Travel Have you traveled outside of the country in past 3 weeks: No - Coronavirus Screening Are you exhibiting any of the following symptoms?: No Close contact with a COVID-19 positive Pt in past 14-21 Days: No - Vaccine Status Have you recieved a Covid-19 vaccination: Yes 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[employer] - Vaccination Dates Date of 2cond Vaccination (if applicable): unknown - Review of Systems Constitutional: No Symptoms Eyes: No Symptoms Ears, Nose, & Throat: No Symptoms Respiratory: No Symptoms Cardiac: No Symptoms Abdominal/Gastrointestinal: No Symptoms Genitourinary Symptoms: No Symptoms Musculoskeletal: No Symptoms Skin: Other (Small abscess at the transjugular entrance site) Neurological: No Symptoms Psychological: No Symptoms Endocrine: No Symptoms Hematologic/Lymphatic: No Symptoms Immunological/Allergic: No Symptoms All Other Systems: Reviewed and Negative - Past Medical History Pertinent Past Medical History: Yes Neurological History: No Pertinent History ENT History: No Pertinent History Cardiac History: Hypertension Respiratory History: Asthma Endocrine Medical History: Diabetes Type II Musculoskeletal History: No Pertinent History GI Medical History: No Pertinent History History: No Pertinent History Psycho-Social History: Anxiety, Depression Female Reproductive Disorders: Abnormal Uterine Bleeding - Past Surgical History Past Surgical History: Yes Neuro Surgical History: No Pertinent History Cardiac: No Pertinent History Respiratory: No Pertinent History Gastrointestinal: Cholecystectomy Genitourinary: No Pertinent History Musculoskeletal: No Pertinent History Female Surgical History: Hysterectomy Other Surgical History: tonsilectomy, pinky amputated. - Social History Smoking Status: Current every day smoker How long have you smoked: age20 Exposure to second hand smoke: Yes Drug Use: none Patient Lives Alone: Yes - Female History Hx Last Menstrual Period: hyster Hx Now: No - Nursing Vital Signs Nursing Vital Signs: Initial Vital Signs Temperature 97.4 F 02/02/22 16:47 Pulse Rate 118 H 02/02/22 16:47 Respiratory Rate 28 H 02/02/22 16:47 Blood Pressure 160/110 02/02/22 16:47 O2 Sat by Pulse Oximetry 96 02/02/22 16:47 Pain Scale Pain Intensity 7 - Physical Exam General Appearance: no apparent distress, alert, anxiety, obese Eye Exam: PERRL/EOMI, eyes nml inspection Ears, Nose, Throat Exam: normal ENT inspection, moist mucous membranes Neck Exam: other (Small abscess at the transjugular biopsy entrance site. That incision site is less than 1 cm in length. Is transversely oriented. There is only GIORGI incision site cellulitis that is mild. There is no palpable pulse present. There is a healing ridge present and it is separate from the underlying) Respiratory Exam: normal breath sounds, lungs clear, prolonged expirations, No chest tenderness, No respiratory distress Cardiovascular Exam: tachycardia Gastrointestinal/Abdomen Exam: No tenderness Pelvic Exam: not done Rectal Exam: not done Back Exam: normal inspection, normal range of motion, No CVA tenderness, No vertebral tenderness Extremity Exam: normal inspection, normal range of motion, pelvis stable Neurologic Exam: alert, oriented x 3, cooperative, etl developer II-XII nml as tested, normal mood/affect, nml cerebellar function, nml station & gait, sensation nml Skin Exam: other (Small superficial abscess present. There is localized healing ridge and mild redness around the incision site. No palpable pulse) Lymphatic Exam: No adenopathy SpO2 Interpretation: normal SpO2: 96 O2 Delivery: Room Air Procedures - Incision and Drainage Time of Procedure: 18:00 Site: Right lateral neck Blade Size: 11 I & D Procedure: betadine prep Results: small amount pus Progress: Wound site was then cleaned after incision and drainage was made. Culture was made of the small amount of pus. Bandage was placed overlying the site. - Course Nursing assessment & vital signs reviewed: Yes - Progress Progress: improved Counseled pt/family regarding: diagnosis, need for follow-up - Departure Departure Disposition: Home Clinical Impression: Abscess Condition: Stable Critical Care Time: No Referrals: DANA PICHARDO COMMERCIAL DEVELOPMENT MANAGER [Primary Care Provider] - Follow up/PCP as directed Additional Instructions: Keep the site of the incision and drainage clean with soap and water and cover with a bandage. Do not use any ointments lotions or creams. Fill your prescription of antibiotic. Use Tylenol and ibuprofen for pain control.
[2022-02-02] MEDS ORDERED: Rocephin 1000 MG INJ IM ONE (18:30)
[2022-02-02] MEDS ORDERED: NORCO 5/325 MG PO ONE (18:30)
[2022-02-02] MEDS ORDERED: Rocephin 1000 MG INJ ONE (18:33)
[2022-02-02] MEDS ORDERED: NORCO 5/325 MG ONE (18:33)
[2022-02-02 18:55] VITALS: BP 137/88; PULSE 107; O2SAT 95
== END 2022-02-02 18:55 | disposition home or self-care (01) ==
LOC: ED 15:15
DX: T81.41XA Infection following a procedure, superficial incisional surgical site, initial encounter (principal); L02.11 Cutaneous abscess of neck; I10 Essential (primary) hypertension; E11.9 Type 2 diabetes mellitus without complications; Z72.0 Tobacco use; Z79.4 Long term (current) use of insulin; Z79.899 Other long term (current) drug therapy
CPT/HCPCS: 10060; 87070; 96372; 99283; J0696; A9270-GY

== ENCOUNTER 2022-02-14 23:09 | Emergency (ER) | payer OTHER ==
--- NOTE | 2022-02-14 23:35 | ERPHSYRPT ---
- History of Present Illness Source: patient Exam Limitations: no limitations Patient Subjective Stated Complaint: pt states "for the past 2 hrs my chest has been hurting and shortness of breath." Triage Nursing Assessment: Pt ambulatory to bed by self, pt alert and oriented x3, lung sounds clear, skin pwd, pt c/o chest pain, sob, sore throat, headache, nasal congestion, fever for a couple days, pt tachycardiac Physician History: 36 yo wf w cough/fever/otalgia wo N/V/D x 2 days. Pt has chest pain w coughing and deep breath. Timing/Duration: other (2 days) Cough Quality/Degree: dry cough Possible Cause: occasional episodes Modifying Factors: Improves With: coughing, deep breath Associated Symptoms: fever, chest pain/soreness, cough Allergies/Adverse Reactions: hydromorphone HCl [From Dilaudid] Allergy (Verified 02/14/22 23:12) Swelling Home Medications: Insulin Lispro [Admelog] 1 unit SQ DAILY 12/19/21 [History] Rosuvastatin Calcium 20 mg PO DAILY 12/19/21 [History] Topiramate 25 mg [Topamax 25 MG] 25 mg PO HS 12/19/21 [History] hydrOXYzine HCL [Hydroxyzine HCl] 1 tab PO DAILY 12/19/21 [History] Hx Tetanus, Diphtheria Vaccination/Date Given: Yes Hx Influenza Vaccination/Date Given: No Hx Pneumococcal Vaccination/Date Given: No Travel Risk - International Travel Have you traveled outside of the country in past 3 weeks: No - Coronavirus Screening Are you exhibiting any of the following symptoms?: No Close contact with a COVID-19 positive Pt in past 14-21 Days: No - Vaccine Status Have you recieved a Covid-19 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: 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[employer]: [employer] - Vaccination Dates Date of 2cond Vaccination (if applicable): unknown - Review of Systems Constitutional: No Symptoms, Fever, Chills Eyes: No Symptoms Ears, Nose, & Throat: No Symptoms Respiratory: No Symptoms, Cough Cardiac: No Symptoms Abdominal/Gastrointestinal: No Symptoms Genitourinary Symptoms: No Symptoms Musculoskeletal: No Symptoms Skin: No Symptoms Neurological: No Symptoms Psychological: No Symptoms Endocrine: No Symptoms Hematologic/Lymphatic: No Symptoms Immunological/Allergic: No Symptoms - Past Medical History Pertinent Past Medical History: Yes Neurological History: No Pertinent History ENT History: No Pertinent History Cardiac History: Hypertension Respiratory History: Asthma Endocrine Medical History: Diabetes Type II Musculoskeletal History: No Pertinent History GI Medical History: No Pertinent History History: No Pertinent History Psycho-Social History: Anxiety, Depression Female Reproductive Disorders: Abnormal Uterine Bleeding - Past Surgical History Past Surgical History: Yes Neuro Surgical History: No Pertinent History Cardiac: No Pertinent History Respiratory: No Pertinent History Gastrointestinal: Cholecystectomy Genitourinary: No Pertinent History Musculoskeletal: No Pertinent History Female Surgical History: Hysterectomy Other Surgical History: tonsilectomy, pinky amputated. - Social History Smoking Status: Current every day smoker How long have you smoked: age20 Exposure to second hand smoke: Yes Drug Use: none Patient Lives Alone: Yes - Female History Hx Last Menstrual Period: post hysterectomy Hx Now: No - Nursing Vital Signs Nursing Vital Signs: Initial Vital Signs Temperature 97.6 F 02/14/22 23:14 Pulse Rate 113 H 02/14/22 23:14 Respiratory Rate 18 02/14/22 23:14 Blood Pressure 151/97 02/14/22 23:14 O2 Sat by Pulse Oximetry 97 02/14/22 23:14 Pain Scale Pain Intensity 4 Tachy/hypertensive - Physical Exam General Appearance: no apparent distress Eye Exam: PERRL/EOMI, eyes nml inspection Ears, Nose, Throat Exam: normal ENT inspection, TMs normal, pharynx normal, moist mucous membranes Neck Exam: normal inspection, non-tender, supple, full range of motion Respiratory Exam: normal breath sounds, lungs clear, airway intact, No res piratory distress Cardiovascular Exam: tachycardia, capillary refill <2 sec, No murmur Gastrointestinal/Abdomen Exam: soft, normal bowel sounds, No tenderness Back Exam: normal inspection, normal range of motion, No CVA tenderness, No vertebral tenderness Extremity Exam: normal inspection, normal range of motion Neurologic Exam: alert, oriented x 3, cooperative, 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 as tested, normal mood/affect, nml cerebellar function, nml station & gait, sensation nml Skin Exam: normal color, warm, dry Lymphatic Exam: No adenopathy SpO2 Interpretation: normal SpO2: 97 O2 Delivery: Room Air - Course Nursing assessment & vital signs reviewed: Yes EKG Interpreted by Me: RATE (Sinus tach/[id number]/Borderline prolonged QTc/Nonspecific ST changes) - Radiology Exams Chest X-ray Interpretation: Interpreted by me (CXR WNL) Ordered Tests: Active Orders 24 hr Category Date Time Status CHEST 1 VIEW (PORTABLE) Stat Exams 02/15/22 00:43 Taken CBC W DIFF Stat Lab 02/15/22 01:01 Completed CMP Stat Lab 02/15/22 01:01 Completed NT PRO BNP Stat Lab 02/15/22 01:01 Completed TROPONIN Q4H Lab 02/15/22 01:01 Completed TROPONIN Q4H Lab 02/15/22 04:45 Ordered TROPONIN Q4H Lab 02/15/22 08:45 Ordered Lab/Rad Data: Laboratory Result Diagrams 02/15/22 01:01 02/15/22 01:01 Laboratory Results 02/15/22 02/15/22 02/15/22 Range/Units 01:01 01:01 01:01 WBC 9.1 (4.0-10.5) x10^3/uL RBC 5.06 (4.1-5.4) x10^6/uL Hgb 14.2 (12.0-16.0) g/dL Hct 45.1 (35-47) % MCV 89.1 (78-100) fL MCH 28.1 (26-32) pg MCHC 31.5 L (32-36) g/dL RDW 12.0 (11.5-14.0) % Plt Count 173 (150-450) x10^3/uL MPV 12.1 H (7.5-11.0) fL Gran % 46.9 (36.0-66.0) % Immature Gran % (Auto) 0.4 (0.00-0.4) % Nucleat RBC Rel Count 0.0 (0.00-0.1) % Eos # (Auto) 0.26 (0-0.5) x10^3/uL Immature Gran # (Auto) 0.04 H (0.00-0.03) x10^3u/L Absolute Lymphs (auto) 3.89 (1.0-4.6) x10^3/uL Absolute Monos (auto) 0.56 (0.0-1.3) x10^3/uL Absolute Nucleated RBC 0.00 (0.00-0.01) x10^3u/L Lymphocytes % 42.9 (24.0-44.0) % Monocytes % 6.2 (0.0-12.0) % Eosinophils % 2.9 (0.00-5.0) % Basophils % 0.7 (0.0-0.4) % Absolute Granulocytes 4.26 (1.4-6.9) x10^3/uL Basophils # 0.06 (0-0.4) x10^3/uL Sodium 138 (137-145) mmol/L Potassium 3.5 (3.5-5.1) mmol/L Chloride 102 (98-107) mmol/L Carbon Dioxide 25 (22-30) mmol/L Anion Gap 14.7 (5-15) MEQ/L BUN 12 (7-17) mg/dL Creatinine 0.53 (0.52-1.04) mg/dL Estimated GFR > 60.0 ML/MIN Glucose 268 H (74-106) mg/dL Calcium 9.3 (8.4-10.2) mg/dL Total Bilirubin 0.40 (0.2-1.3) mg/dL AST 29 (14-36) U/L ALT 61 H (0-35) U/L Alkaline Phosphatase 110 (38-126) U/L Troponin I < 0.012 (0.000-0.034) ng/mL NT-Pro-B Natriuret Pep 28.4 (0-450) pg/mL Serum Total Protein 7.8 (6.3-8.2) g/dL Albumin 4.4 (3.5-5.0) g/dL Influenza Type A Ag (NEGATIVE) Influenza Type B Ag (NEGATIVE) RSV (PCR) (Negative) SARS-CoV-2 (PCR) (NEGATIVE) 02/14/22 Range/Units 23:40 WBC (4.0-10.5) x10^3/uL RBC (4.1-5.4) x10^6/uL Hgb (12.0-16.0) g/dL Hct (35-47) % MCV (78-100) fL MCH (26-32) pg MCHC (32-36) g/dL RDW (11.5-14.0) % Plt Count (150-450) x10^3/uL MPV (7.5-11.0) fL Gran % (36.0-66.0) % Immature Gran % (Auto) (0.00-0.4) % Nucleat RBC Rel Count (0.00-0.1) % Eos # (Auto) (0-0.5) x10^3/uL Immature Gran # (Auto) (0.00-0.03) x10^3u/L Absolute Lymphs (auto) (1.0-4.6) x10^3/uL Absolute Monos (auto) (0.0-1.3) x10^3/uL Absolute Nucleated RBC (0.00-0.01) x10^3u/L Lymphocytes % (24.0-44.0) % Monocytes % (0.0-12.0) % Eosinophils % (0.00-5.0) % Basophils % (0.0-0.4) % Absolute Granulocytes (1.4-6.9) x10^3/uL Basophils # (0-0.4) x10^3/uL Sodium (137-145) mmol/L Potassium (3.5-5.1) mmol/L Chloride (98-107) mmol/L Carbon Dioxide (22-30) mmol/L Anion Gap (5-15) MEQ/L BUN (7-17) mg/dL Creatinine (0.52-1.04) mg/dL Estimated GFR ML/MIN Glucose (74-106) mg/dL Calcium (8.4-10.2) mg/dL Total Bilirubin (0.2-1.3) mg/dL AST (14-36) U/L ALT (0-35) U/L Alkaline Phosphatase (38-126) U/L Troponin I (0.000-0.034) ng/mL NT-Pro-B Natriuret Pep (0-450) pg/mL Serum Total Protein (6.3-8.2) g/dL Albumin (3.5-5.0) g/dL Influenza Type A Ag NEGATIVE (NEGATIVE) Influenza Type B Ag NEGATIVE (NEGATIVE) RSV (PCR) NEGATIVE (Negative) SARS-CoV-2 (PCR) NEGATIVE (NEGATIVE) - Progress Progress Note: 02/15/22 01:39 Heart score 2 Well's criteria for PE 1.5 points(1.3% chance of PE) Counseled pt/family regarding: lab results, diagnosis, need for follow-up, rad results - Departure Departure Disposition: Home Clinical Impression: Bronchitis Condition: Stable Critical Care Time: No Referrals: DANA PICHARDO MUD TANK OPERATOR [Primary Care Provider] - Follow up/PCP as directed Instructions: Acute Bronchitis, Adult (DC), Chest Pain (DC) Additional Instructions: Follow up with your family MD in 1-2 days Start Doxycycline twice a day for 7 days Return to ER for worsening cough, increasing shortness of breath, temperature greater than 100.5, or worsening chest pain Prescriptions: Doxycycline Monohydrate 100 mg PO BID 7 Days #14 cap
[2022-02-15 00:13] VITALS: BP 105/66
[2022-02-15 00:24] LABS: INFLUENZA A NEGATIVE (NEGATIVE); INFLUENZA B NEGATIVE (NEGATIVE); RESPIRATORY SYNCTIAL VIRUS NEGATIVE (Negative); SARS-CoV-2 Xpert Express NEGATIVE (NEGATIVE)
[2022-02-15 01:03] VITALS: PULSE 101; O2SAT 97
[2022-02-15 01:07] LABS: Absolute Neutrophil Ct (ANC) 4.26 x10^3/uL (1.4-6.9); Basophil (Absolute #) 0.06 x10^3/uL (0-0.4); Eosinophil % 2.9 % (0.00-5.0); Eosinophil (Absolute #) 0.26 x10^3/uL (0-0.5); Hematocrit 45.1 % (35-47); Hemoglobin 14.2 g/dL (12.0-16.0); Lymphocyte (Absolute #) 3.89 x10^3/uL (1.0-4.6); Lymphocytes % 42.9 % (24.0-44.0); Mean Cell Volume 89.1 fL (78-100); Mean Corpuscular Hemoglobin 28.1 pg (26-32); Mean Corpuscular Hgb Concent. 31.5 g/dL (32-36); Mean Platelet Volume 12.1 fL (7.5-11.0); Monocyte (Absolute #) 0.56 x10^3/uL (0.0-1.3); Monocytes % 6.2 % (0.0-12.0); Neutrophil % 46.9 % (36.0-66.0); Platelet Count 173 x10^3/uL (150-450); Red Blood Count 5.06 x10^6/uL (4.1-5.4); White Blood Count 9.1 x10^3/uL (4.0-10.5)
[2022-02-15 01:26] LABS: ALBUMIN 4.4 g/dL (3.5-5.0); ALKALINE PHOSPHATASE 110 U/L (38-126); ANION GAP 14.7 MEQ/L (5-15); BLOOD UREA NITROGEN 12 mg/dL (7-17); CHLORIDE 102 mmol/L (98-107); Calcium 9.3 mg/dL (8.4-10.2); Carbon Dioxide 25 mmol/L (22-30); Creatinine 1 0.53 mg/dL (0.52-1.04); EST GLOMERULAR FILTRATION RATE > 60.0 ML/MIN; Glucose 268 mg/dL (74-106); NT PRO BNP 28.4 pg/mL (0-450); Potassium 3.5 mmol/L (3.5-5.1); SGOT/AST 29 U/L (14-36); SGPT/ALT 61 U/L (0-35); SODIUM 138 mmol/L (137-145); Total Protein 7.8 g/dL (6.3-8.2)
--- NOTE | 2022-02-15 09:20 | XRAY ---
Indication: Chest pain, dyspnea, and cough. Comparison: February 13, 2014 Portable chest again demonstrates normal heart, lungs, and bony thorax.
== END 2022-02-15 01:50 | disposition home or self-care (01) ==
LOC: ED 23:09
DX: J40 Bronchitis, not specified as acute or chronic (principal); R05.1 Acute cough; R50.9 Fever, unspecified; H92.09 Otalgia, unspecified ear; I10 Essential (primary) hypertension; E11.9 Type 2 diabetes mellitus without complications; Z79.4 Long term (current) use of insulin; Z79.899 Other long term (current) drug therapy; Z72.0 Tobacco use
CPT/HCPCS: 0241U; 36415; 71045; 80053; 83880; 84484; 85025; 99283

== ENCOUNTER 2022-10-01 16:19 | Emergency (ER) | payer MEDICAID ==
[2022-10-01 16:36] VITALS: TEMP 97
--- NOTE | 2022-10-01 16:38 | ERPHSYRPT ---
- History of Present Illness Time Seen by Provider: 10/01/22 16:38 Source: patient Exam Limitations: no limitations Patient Subjective Stated Complaint: here for pain to right foot and ankle after falling off the porch today, landed standing up. Triage Nursing Assessment: pt alert, resp easy, skin w/d/p, has swelling to right foot, tenderness to foot, unable to bear full wt Physician History: This is a 36-year-old obese white female who presents with right foot and ankle pain after losing her balance and falling off her porch earlier today. Patient lost her balance because her dog ran into her. Patient can bear weight but it hurts to do so. Patient is a diabetic, has elevated lipids, asthma, hypertension and anxiety. She has no other complaints of pain or injury. Method of Injury: fell Occurred: this morning Quality: constant, aching Severity of Pain-Max: mild (To moderate) Severity of Pain-Current: mild (To moderate to moderate) Lower Extremities Pain: foot: right, ankle: right Modifying Factors: Improves With: movement Associated Symptoms: other (Hurts to bear weight) Allergies/Adverse Reactions: hydromorphone HCl [From Dilaudid] Allergy (Verified 10/01/22 16:26) Swelling Home Medications: Insulin Lispro [Admelog] 1 unit SQ DAILY 12/19/21 [History] Rosuvastatin Calcium 20 mg PO DAILY 12/19/21 [History] Topiramate 25 mg [Topamax 25 MG] 25 mg PO HS 12/19/21 [History] hydrOXYzine HCL [Hydroxyzine HCl] 1 tab PO DAILY 12/19/21 [History] Hx Tetanus, Diphtheria Vaccination/Date Given: Yes Hx Influenza Vaccination/Date Given: No Hx Pneumococcal Vaccination/Date Given: No Immunizations Up to Date: Yes Travel Risk - International Travel Have you traveled outside of the country in past 3 weeks: No - Coronavirus Screening Are you exhibiting any of the following symptoms?: No Close contact with a COVID-19 positive Pt in past 14-21 Days: No - Vaccine Status Have you recieved a Covid-19 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: 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: [employer] - Vaccination Dates Date of 2cond Vaccination (if applicable): unknown - Review of Systems Constitutional: No Symptoms Eyes: No Symptoms Ears, Nose, & Throat: No Symptoms Respiratory: No Symptoms Cardiac: No Symptoms Abdominal/Gastrointestinal: No Symptoms Genitourinary Symptoms: No Symptoms Musculoskeletal: Injury (Right foot and right ankle) Skin: No Symptoms Neurological: No Symptoms Psychological: No Symptoms Endocrine: No Symptoms Hematologic/Lymphatic: No Symptoms Immunological/Allergic: No Symptoms All Other Systems: Reviewed and Negative - Past Medical History Pertinent Past Medical History: Yes Neurological History: No Pertinent History ENT History: No Pertinent History Cardiac History: Hypertension Respiratory History: Asthma Endocrine Medical History: Diabetes Type II Musculoskeletal History: No Pertinent History GI Medical History: GERD History: No Pertinent History Psycho-Social History: Anxiety, Depression Female Reproductive Disorders: Abnormal Uterine Bleeding - Past Surgical History Past Surgical History: Yes Neuro Surgical History: No Pertinent History Cardiac: No Pertinent History Respiratory: No Pertinent History Gastrointestinal: Cholecystectomy Genitourinary: No Pertinent History Musculoskeletal: No Pertinent History Female Surgical History: Hysterectomy Other Surgical History: tonsilectomy, pinky amputated. - Social History Smoking Status: Former smoker How long have you smoked: age20 Exposure to second hand smoke: Yes Drug Use: none Patient Lives Alone: Yes - Female History Hx Last Menstrual Period: hyster Hx Now: No - Nursing Vital Signs Nursing Vital Signs: Initial Vital Signs Temperature 97 F 10/01/22 16:35 Pulse Rate 106 H 10/01/22 16:35 Blood Pressure 134/98 10/01/22 16:35 O2 Sat by Pulse Oximetry 97 10/01/22 16:35 Pain Scale Pain Intensity 6 - Physical Exam General Appearance: no apparent distress, alert, anxiety, obese Eyes, Ears, Nose, Throat Exam: normal ENT inspection, moist mucous membranes Neck Exam: normal inspection, non-tender, supple, full range of motion Cardiovascular/Respiratory Exam: chest non-tender, no respiratory distress Gastrointestinal/Abdominal Exam: non-tender Back Exam: normal inspection, normal range of motion, No CVA tenderness, No vertebral tenderness Hips Exam: bilateral: non-tender, normal inspection, normal range of motion, no evidence of injury Legs Exam: bilateral leg: non-tender, normal inspection, normal range of motion, no evidence of injury Knees Exam: bilateral knee: non-tender, normal inspection, normal range of motion, no evidence of injury Ankle Exam: right ankle: limited range of motion, soft tissue tenderness (Laterally), swelling (Laterally), left ankle: non-tender, normal inspection, normal range of motion, no evidence of injury Foot Exam: right foot: soft tissue tenderness, swelling, left foot: non-tender, normal inspection, normal range of motion, no evidence of injury Neuro/Tendon Exam: normal sensation, normal motor functions, normal tendon functions, responds to pain Mental Status Exam: alert, oriented x 3, cooperative Skin Exam: normal color, warm, dry SpO2 Interpretation: normal SpO2: 97 O2 Delivery: Room Air - Course Nursing assessment & vital signs reviewed: Yes Ordered Tests: Active Orders 24 hr Category Date Time Status Cold Application STAT Care 10/01/22 16:40 Active ANKLE (3 VIEWS) Stat Exams 10/01/22 16:35 Completed FOOT (MINIMUM 3 VIEWS) Stat Exams 10/01/22 16:35 Completed - Progress Progress: unchanged Progress Note: 10/01/22 17:04 The x-rays were interpreted by the radiologist. To include the right ankle and right foot. Both of these studies show no acute fracture or dislocation. I reviewed the impression. This patient's medical issue is 1 of low complexity. Level complexity in the work-up performed is based on review of the patient's past medical history, review of the patient's medication list, review of the patient's drug allergy list, history of present illness and physical findings on examination. This patient's work-up is to include x-ray of the right foot and ankle. The patient has a right foot and ankle sprain without evidence of an acute fracture or dislocation. These films were interpreted by the radiologist. Counseled pt/family regarding: diagnosis, need for follow-up, rad results Medical Desision Making - Diagnostic Testing Diagnostic test were ordered, analyzed, and reviewed by me: Yes Radiological Interpretation: Reviewed by me, Teleradiologist Report - Risk of complications Minimal Risk: Minimal risk of morbidity - Departure Departure Disposition: Home Clinical Impression: Sprain of right foot, Sprain of right ankle Condition: Stable Critical Care Time: No Referrals: DANA PICHARDO KENNEL HELPER [Primary Care Provider] - Follow up/PCP as directed Additional Instructions: Ice bath (soak right foot and right ankle in ice plus water) or ice pack 3 times a day for the next 48 hours. Elevate the right foot and ankle when not ambulating. Wear Mohinder wrap for compression and comfort. Add ibuprofen 600 mg orally with food 3 times a day for the next 5 days. May follow-up with your primary care provider, Dr. Olivia (podiatry) or [facility] orthopedic clinic if symptoms have not improved within 48 hours. Prescriptions: Oxycodone HCl/Acetaminophen [Percocet 5-325 mg Tablet] 1 each PO Q8H PRN PRN #6 tablet MDD 3 PRN Reason: Moderate To Severe Pain
--- NOTE | 2022-10-01 16:55 | XRAY ---
Indication: Pain following injury. Comparison: None 3 view right ankle obtained. No bony, articular, or soft tissue abnormalities.
--- NOTE | 2022-10-01 16:55 | XRAY ---
Indication: Pain following injury. Comparison: None 3 nonweightbearing views right foot demonstrates cuboid accessory ossicles. No bony, articular, or soft tissue abnormalities.
[2022-10-01] MEDS ORDERED: PERCOCET TABLET 5/325MG ONE (17:20)
[2022-10-01] MEDS ORDERED: PERCOCET TABLET 5/325MG PO STA (17:21)
[2022-10-01 17:29] VITALS: BP 122/84; PULSE 98; RESP 18; O2SAT 96
== END 2022-10-01 17:28 | disposition home or self-care (01) ==
LOC: ED 16:19
DX: S93.401A Sprain of unspecified ligament of right ankle, initial encounter (principal); S93.601A Unspecified sprain of right foot, initial encounter; W17.89XA Other fall from one level to another, initial encounter; Y92.007 Garden or yard of unspecified non-institutional (private) residence as the place of occurrence of the external cause; E11.9 Type 2 diabetes mellitus without complications; E78.5 Hyperlipidemia, unspecified; I10 Essential (primary) hypertension; Z79.4 Long term (current) use of insulin; Z79.899 Other long term (current) drug therapy
CPT/HCPCS: 73610; 73630; 99283; A9270-GY